=== PATIENT | male | born 1980 | race Caucasian/White ===

== ENCOUNTER 2017-06-01 15:26 | Observation (INO) | payer OTHER ==
[~2017-06-01] VITALS: Ht 182.9 cm; Wt 127.0 kg
--- NOTE | 2017-06-01 15:52 | EKG ---
[address] [address] Test Date: 2017-06-01 Test Time: 15:46:32 Pat Name: RICO LOUIE Department: Room: Gender: M [employer] Carpenter: : 1980 Requested By: MADHURI ALFARO Order Number: [id number] Reading MD: Measurements Intervals Hinkle Rate: 108 P: 20 NE: 136 QRS: 15 QRSD: 90 T: 5 QT: 334 QTc: 451 Interpretive Statements SINUS TACHYCARDIA QRS(T) CONTOUR ABNORMALITY CANNOT RULE OUT ANTEROSEPTAL MYOCARDIAL DAMAGE RI6.01 Unconfirmed report No previous ECG available for comparison
--- NOTE | 2017-06-01 16:08 | PHYS DOC ---
General Chief Complaint: CHEST PAIN Stated Complaint: HEART FELT FUNNY/FELT LIKE HE MIGHT PASS OUT Time Seen by MD: 15:54 Source: patient Exam Limitations: no limitations Problems: History of Present Illness Initial Comments Patient is a 37-year-old male who comes to the ED complaining of palpitations, dyspnea, and high blood pressure. Patient states that he hasn't followed up with any doctors for many years and he has no hypertension diagnosis but he has checked his blood pressure occasionally at the drugstore and has run high. He describes readings with systolic pressures in the 170s to 180s never with any symptoms, he also states that he's been under a great deal of stress recently as he feared he was going to lose his job. He says a week or so ago he had an episode of chest tightness and palpitations but that resolved spontaneously without intervention. This morning while driving to work at approximately 7:00 AM he had a recurrence much more severe of the palpitations and feeling as if he can feel his pulse in his upper extremities face and head. He complains of chest pain described as tightness with dyspnea and headache. Headache is described as pounding feeling his pulse in his head and facial warmth. He denies nausea vomiting vision changes or focal neurologic deficit. Symptoms described as severe, no fever chills or cough. No exacerbating or relieving factors noted other than he feels stress at work has affected him negatively contributing to these symptoms. He is not a smoker he denies family history of coronary artery disease. No pre- arrival treatment. Tachypneic/tachycardic/diaphoretic with facial flushing on arrival. ED vitals: 97.8, 108, 24, 192/121, 98% room air Timing/Duration: constant (since approximately 6 AM) Severity: severe Modifying Factors: improves with other Associated Symptoms: headaches, malaise, shortness of breath (with chest tightness) Allergies: Coded Allergies: No Known Drug Allergies (Unverified , 06/01/17) Past Medical History Medical History: no pertinent history Surgical History: no surgical history Social History Smoker: non-smoker Alcohol: occasionally ("a beer with the guys after work occasionally") Drugs: none Review of Systems Constitutional: denies chills, denies diaphoresis, denies fever, malaise EENTM: denies eye pain, denies blurred vision, denies ear pain, denies nose pain, denies throat pain Respiratory: denies cough, shortness of breath, denies wheezing Cardiovascular: see HPI, palpitations Gastrointestinal: denies abdominal pain, denies diarrhea, denies nausea, denies vomiting Genitourinary: denies dysuria, denies frequency, denies hematuria Musculoskeletal: see HPI, denies back pain, denies joint swelling, denies neck pain (I) Psychiatric/Neurological: headache, denies numbness, denies paresthesia, denies weakness Hematologic/Lymphatic: denies blood clots, denies easy bleeding, denies easy bruising Physical Exam General Appearance: mild distress, obese Eyes: bilateral eye normal inspection, bilateral eye PERRL, bilateral eye EOMI Ear, Nose, Throat: hearing grossly normal, normal ENT inspection (face is flushed), normal pharynx Neck: non-tender, supple Respiratory: chest non-tender, normal breath sounds, no respiratory distress Cardiovascular: normal peripheral pulses, regular rate, rhythm, no edema Gastrointestinal: non tender, soft Back: no CVA tenderness, no vertebral tenderness Extremities: non-tender, normal inspection, no pedal edema, no calf tenderness Neurologic/Psychiatric: sausage stringer II-XII nml as tested, no motor/sensory deficits, alert, oriented x 3, other (anxious on arrival) Skin: warm/dry Orders, Labs, Meds EKG: Sinus tachycardia 108 bpm, anterolateral, for changes without STEMI criteria. Interpreted by me PATIENT: RICO LOUIE ACCOUNT: [id number] : 1980 LOCATION: ER AGE: 37 SEX: M EXAM STATUS: REG ER ORD. PHYSICIAN: MADHURI ALFARO DO REASON: cp PROCEDURE: PORTABLE CHEST 1V Chest radiograph 06/01/2017 at 1609 hours Indication: Heart palpitations, near syncope Comparison: None available Technique: Single portable frontal view of the chest is provided. Findings: Cardiomediastinal silhouette is within normal limits. No pleural effusions, pulmonary vascular congestion or pneumothorax. The lungs are clear. Osseous structures are normal. Impression: No acute cardiopulmonary process. DICTATED AND SIGNED BY: CLARISA PEREA MD DATE: 06/01/17 0690 CC: PCP,LUTHER; MADHURI ALFARO DO ~ 1707: Patient rechecked, good response to Lopressor blood pressure now 150/100 and his chest tightness, upper extremity head and facial discomfort have mostly improved with correction of his blood pressure. Heart rate now running in the 80s. Labs unremarkable. Cardiac enzymes and d-dimer within normal limits. 175: Patient rechecked once again, he still complains of anterior chest tightness discomfort now only 2/10, he is still anxious but his mood has calmed greatly from arrival. He is extremely concerned that his symptoms are stemming from a cardiac cause and anxiety may be playing a role. I did discuss the patient with Dr. Coulter, he is agreeable to accept the patient for observation admission to continue to monitor blood pressure and to follow serial cardiac enzymes with echocardiogram and cardiology consultation tomorrow. Departure Time of Disposition: 17:55 Disposition: ADMITTED INPATIENT Diagnosis: chest pain, hypertensive urgency Condition: STABLE Additional Instructions: Observation telemetry admission Dr. Coulter is accepting. MADHURI ALFARO DO Jun 01, 2017 16:08
[2017-06-01 16:31] LABS: BASO # 0.1 x10^3/uL (0.0-0.2); BASO % 1 % (0-3); EOS # 0.1 x10^3/uL (0.0-0.7); EOS % 1 % (0-3); HEMATOCRIT 48.7 % (39.0-53.0); HEMOGLOBIN 16.4 g/dL (13.0-17.5); LYMPH # 2.7 x10^3/uL (1.0-4.8); LYMPH % 23 % (24-48); MEAN CORPUSCULAR HEMOGLOBIN 30 pg (25-35); MEAN CORPUSCULAR HGB CONC 34 g/dL (31-37); MEAN CORPUSCULAR VOLUME 88 fL (79-100); MONO # 0.7 x10^3/uL (0.0-1.1); MONO % 6 % (0-9); NEUT # 8.4 x10^3uL (1.8-7.7); NEUT % 71 % (31-73); PLATELET COUNT 278 x10^3/uL (140-400); RED BLOOD COUNT 5.54 x10^6/uL (4.30-5.70); WHITE BLOOD COUNT 11.9 x10^3/uL (4.0-11.0)
[2017-06-01 16:42] LABS: ALBUMIN 4.2 g/dL (3.4-5.0); CALCIUM 9.1 mg/dL (8.5-10.1); CREATININE 0.9 mg/dL (0.7-1.3); POTASSIUM 3.6 mmol/L (3.5-5.1); TOTAL BILIRUBIN 0.5 mg/dL (0.2-1.0); TOTAL PROTEIN 8.3 g/dL (6.4-8.2)
[2017-06-01] MEDS ORDERED: ASPIRIN 81 MG TAB.CHEW PO ONE (16:45)
[2017-06-01] MEDS ORDERED: METOPROLOL TARTRATE 5 MG/5 ML VIAL. IV ONE (16:45)
[2017-06-01] MEDS ORDERED: MORPHINE SULFATE 4 MG/ML DISP.SYRIN. IV/SQ PRN (16:45)
[2017-06-01] MEDS ORDERED: NITROGLYCERIN SUBLINGUAL 0.4 MG BOTTLE OF 25. SL PRN ×2 (16:45→18:00)
[2017-06-01] MEDS ORDERED: KETOROLAC 30 MG/ML VIAL. ONE (16:47)
--- NOTE | 2017-06-01 16:50 | RAD ---
Chest radiograph 06/01/2017 at 1609 hours Indication: Heart palpitations, near syncope Comparison: None available Technique: Single portable frontal view of the chest is provided. Findings: Cardiomediastinal silhouette is within normal limits. No pleural effusions, pulmonary vascular congestion or pneumothorax. The lungs are clear. Osseous structures are normal. Impression: No acute cardiopulmonary process.
[2017-06-01] MEDS ORDERED: KETOROLAC 30 MG/ML VIAL. IV ONE (17:20)
[2017-06-01] MEDS ORDERED: ACETAMINOPHEN 325 MG TABLET PO PRN (18:00)
[2017-06-01] MEDS ORDERED: ONDANSETRON PF 4 MG/2 ML VIAL. IV PRN (18:00)
[2017-06-01 19:21] VITALS: BP 169/104
[2017-06-01 19:22] VITALS: BP 169/104
[2017-06-01] MEDS ORDERED: TEMAZEPAM 15 MG CAPSULE PO PRN (21:15)
[2017-06-01] MEDS ORDERED: amLODIPine BESYLATE 10 MG TABLET PO ONE (21:15)
[2017-06-01 21:40] VITALS: BP 157/100
[2017-06-01 23:00] VITALS: BP 134/87
[2017-06-02 06:00] VITALS: BP 148/78
[2017-06-02 06:42] LABS: BASO % 1 % (0-3); EOS # 0.1 x10^3/uL (0.0-0.7); EOS % 2 % (0-3); HEMATOCRIT 44.5 % (39.0-53.0); HEMOGLOBIN 15.1 g/dL (13.0-17.5); LYMPH # 2.2 x10^3/uL (1.0-4.8); LYMPH % 25 % (24-48); MEAN CORPUSCULAR HEMOGLOBIN 30 pg (25-35); MEAN CORPUSCULAR HGB CONC 34 g/dL (31-37); MEAN CORPUSCULAR VOLUME 88 fL (79-100); MONO # 0.6 x10^3/uL (0.0-1.1); MONO % 7 % (0-9); NEUT # 5.8 x10^3uL (1.8-7.7); NEUT % 66 % (31-73); PLATELET COUNT 231 x10^3/uL (140-400); RED BLOOD COUNT 5.08 x10^6/uL (4.30-5.70); RED CELL DISTRIBUTION WIDTH 12.7 % (11.5-14.5); WHITE BLOOD COUNT 8.8 x10^3/uL (4.0-11.0)
[2017-06-02 06:50] LABS: CALCIUM 8.7 mg/dL (8.5-10.1); CREATININE 0.8 mg/dL (0.7-1.3); GFR 108.8; POTASSIUM 3.9 mmol/L (3.5-5.1)
[2017-06-02 10:12] VITALS: BP 156/108
[2017-06-02] MEDS ORDERED: amLODIPine BESYLATE 10 MG TABLET PO SCH (10:30)
[2017-06-02 14:28] VITALS: BP 161/105
[2017-06-02] MEDS ORDERED: AMLO10TA2 PO (14:38)
--- NOTE | 2017-06-02 20:15 | SSS ---
ADMIT DATE: 06/02/2017 HISTORY OF PRESENT ILLNESS: The patient doing is a 37-year-old male patient who came to the Emergency Room complaining of palpitations, dyspnea, noted his blood pressure to be high and the patient stated he has not followed up with any doctor for many years and has had no hypertension diagnosis, but checked his blood pressure occasionally in drug stores and found it high, usually systolic pressure up to 170-180, never with any symptoms. He also has been under a great deal of stress recently and he fears he is going to lose his job. About a week ago, he developed an episode of chest tightness and palpitations that has resolved spontaneously without intervention; however, yesterday morning when he was driving to work at approximately 7:00 a.m., he has had recurrence, much more severe palpitation and a feeling as if she cannot feel his pulse in his upper extremity, face and head. The patient has no known medical problem before and has never had any surgical procedure, and is currently on no medication. The patient was admitted to rule out myocardial infarction and to consult the dry wall applicator. PAST MEDICAL HISTORY: Unremarkable except for the fact that he checked his blood pressure and found it to be high multiple times. PAST SURGICAL HISTORY: Unremarkable. SOCIAL HISTORY: He is , works as a welder/installer, does not smoke or drink alcohol. FAMILY HISTORY: He has 1 sister, older and is healthy. Mother is alive and is known to have hypertension. Father is healthy. REVIEW OF SYSTEMS: As per history of present illness. ALLERGIES: No known drug allergies. MEDICATIONS: The patient is not on any medication. PHYSICAL EXAMINATION: GENERAL: On examining him, he looked well and was clearly in no apparent respiratory distress. There was no pallor, jaundice, cyanosis, lymphadenopathy, or thyromegaly. No jugular venous distention. No limb edema. VITAL SIGNS: His heart rate was 108, blood pressure was 156/100, temperature was 97.8, respiratory rate 24 and oxygen saturation was 98% on room air. HEENT: Showed normocephalic, atraumatic. NECK: Supple. HEART: Showed normal first and second heart sounds with no gallop, rub or murmur. CHEST: Clear to auscultation. No crepitation or rhonchi. ABDOMEN: Distended, soft, nontender. No guarding or rigidity. No organomegaly. Hernial orifices intact. Bowel sounds normal. NEUROLOGIC: He was awake, alert, responding appropriately. Cranial nerves intact. EXTREMITIES: She moves extremities without difficulty, ambulates without assistance or assistive devices. LABORATORY DATA: The patient was admitted and has had 3 sets of cardiac enzymes, all of them showed troponin to be less than 0.10 and 0.017. His fasting lipid profile showed that his serum triglycerides were 135, cholesterol was 140, LDL was 82, VLDL was 27 and HDL was 31 and the ratio was 4. His white cell count was 8800, hemoglobin 15, hematocrit 44, MCV 88 and platelet count 231,00. His serum sodium 142, potassium 3.9, chloride 106, bicarbonate 32, anion gap of 4, BUN 10, creatinine 0.8, estimated GFR was 109 mL per minute, his glucose 113, calcium was 8.7. D-dimer was 0.35 mg/dL. His chest x-ray showed that the cardiomediastinal silhouette is within normal limits. No pleural effusion, pulmonary vascular congestion, pneumothorax. The lungs are clear. Osseous structures were normal. His EKG showed that he was in sinus tachycardia, but no evidence of any ST segment elevation or depression. ASSESSMENT AND PLAN: Basically, the plan is to discharge the patient home on amlodipine 10 mg once a day and we will arrange for him to be seen by the dry wall applicator as an outpatient. FINAL DISCHARGE DIAGNOSES: Chest pain, atypical, no evidence myocardial infarction, hypertension, morbid obesity. KATIE OSULLIVAN MD DR: GILBERTO/lida JOB#: [id number] / [id number]
--- NOTE | 2017-06-03 00:01 | ACF ---
Admission Criteria Forms CARDIOLOGY [facility] Clinical Indications for Admission to Inpatient Care ( [place]/check or initial the applicable condition/criteria) Hospital admission is needed for appropriate care of the patient because of ANY ONE of the following: [ ] I. Hemodynamic instability as indicated by ALL of the following (1)(2)(3) (4)(5)(6)(7)(8)(9)(10) [ ]a) Vital sign abnormality not readily corrected by appropriate treatment with 12-24 hours for ANY ONE: [ ]i) Hypotension that persists despite appropriate treatment (eg, volume repletion) [ ]ii) Tachycardiathat persists despite appropriate tx ( e.g., analgesia, fluids, sedation as indicated [ ]iii) Orthostatic vital sign changes that persists despite appropriate treatment (eg, volume repletion) [ ]b) Vital sign abnormailty that is severe indicated by ANY ONE of the following: [ ]i) Inadequate perfusion indicated by ANY ONE of the following: [ ] 1) Lactic acidosis (> 2 mmol/L) [ ] 2) New abnormal capillary refill (> 3 seconds) [ ] 3) Reduced urine output [ ] 4) New altered mental status [ ] 5) Myocardial Ischemia [ ] 6) Other metabolic acidosis (arterial pH <7.35 ) not otherwise explained. [ ]ii) Mean arterial pressure[A] less than 60 mm Hg [ ]iii) Mean arterial pressure[A] less than 70 mm Hg after 30 minutes of appropriate treatment (eg, fluid resuscitation) [ ]iv) Sustained heart rate greater than 120 beats per minute in adult or child 6 years or older[B] [ ]v) IV inotropic or vasopressor medication required to maintain adequate blood pressure or perfusion [ ] II. Severe heart failure as indicated by ANY ONE of the following(17)(18) [ ]a) Respiratory distress [ ]b) Hypotension [ ]c) Debilitating anasarca refractory to therapy (eg, tissue breakdown with infection)[C](19) [ ]d) Cardiac arrhythmias of immediate concern [ ]e) Myocardial ischemia [ ] III. Cardiac arrhythmias or findings of immediate concern indicated by ANY ONE of the following (21)(22): [ ] a) Heart rhythms that are inherently dangerous or unstable indicated by ANY ONE of the following (23)(24)(25): [ ] i) Resuscitated ventricular fibrillation or cardiac arrest [ ] ii) Ventricular escape rhythm [ ] iii) Sustained ventricular tachycardia (30 seconds or more of ventricular rhythm at greater than 100 beats per minute) [ ] iv) Nonsustained ventricular tachycardia and ANY ONE of the following: [ ] 1) Suspected cardiac ischemia as cause or consequence of ventricular tachycardia [ ] 2) Acute myocarditis [ ] b) Unstable cardiac conduction defects indicated by ANY ONE of the following(25)(26)(27) [ ] i) Type II second-degree atrioventricular block [ ]ii) Third-degree atrioventricular block [ ]iii) New-onset left bundle branch block with suspected myocardial ischemia [ ]c) Any heart rhythm and ANY ONE of the following (23)(24)(28)(29) (30) [ ] i) Continuous long-term ECG monitoring needed (e.g., initiation of drug requiring monitoring for more than 24 hours) [ ] ii) Patient has automatic implanted cardioverter defibrillator that is repeatedly firing, malfunctioning, or in need of immediate adjustment of settings beyond the scope of ambulatory or observation care [ ]d) Heart rhythms of concern due to ANY ONE of the following: [ ] i) Hypotension [ ] ii) Respiratory distress [ ] iii) Association with other significant symptoms (e.g., bradycardia with syncope or ongoing dizziness, supraventricular tachycardia with chest pain (28)(29)(31) [ ] IV. Monitoring for cardiac contusion beyond the scope of observation care needed [A](32)(33)(34) [ ] V. Surgical or device complication (e.g., valve replacement complication , ICD disfunction or pacemaker dysfunction) (49)(50)(51)(52)(53)(54) [ ] . Inpatient palliative care needed. [F](51)(52) Also use Inpatient Palliative Care Criteria [ ] VII. Nonbacterial thrombotic (marantic) endocarditis(43)(44)(55)(56)(57) [X] VIII. Cardiology condition, symptom, or finding for which emergency and observation care has failed or are not considered appropriate. [ ] IX. Acute valvular disease requiring inpatient as indicated by ANY ONE of the following (40)(41) [ ]a) Acute valvular regurgitation (42) [ ]b) Noninfectious valvulitis (43)(44) [ ]c) Obstructive valve thrombosis (45)(46) [ ]d) Paravalvular leak(47)(48) [ ]e) Other significant valvular disorder remaining after emergency or observation level of care (as appropriate) [ ]X. Pericardial disease requiring inpatient treatment as indicated by ANY ONE of the following (35)(36)(37)(38) [ ]a) Suspected tamponade [ ]b) Hemopericardium [ ]c) Other significant pericardial disorder remaining after emergency or observation level of care (as appropriate)(39) [ ] XI. Cardiac ischemia beyond scope of emergency and observation care. [ ] XII. Cyanotic heart disease requiring inpatient care as indicated by 1 or more of the following(58)(59)(60): [ ]a) Acute onset of hypoxemia [ ]b) Exacerbation [X] XIII. Hypertension requiring inpatient treatment as indicated by ANYONE of the following(11)(12)(13)(14): [X]a) Severe hypertension (SBP greater than 180 mm Hg or DBP greater than 110 mm Hg, or greater than the 95th percentile for age, gender, and height in pediatric patients) that cannot be controlled (eg, to SBP less than 160 mm Hg and DBP less than 100 mm Hg) by emergency department or observation care treatment(15) [ ]b) Acute end organ damage secondary to hypertension (SBP greater than 140 mm Hg or DBP greater than 90 mm Hg) as indicated by ANYONE of the following: [ ] i) Hypertensive encephalopathy (eg, Altered mental status)(16) [ ] ii) Cerebral infarction [ ] iii) Intracranial hemorrhage [ ] iv) Myocardial ischemia or infarction [ ] v) Heart failure (eg, pulmonary edema) [ ] vi) Aortic dissection [ ] vii) Increased creatinine (new) with reduction of more than 50% in estimated glomerular filtration rate from baseline [ ] viii) Papilledema [ ] ix) Retinal hemorrhage [ ] x) Microangiopathic hemolytic anemia [ ] xi) Seizure [ ] xii) Other significant finding secondary to hypertension [ ] XIV. Complications of transplanted heart indicated by ANY ONE of the following(61): [ ]a) Acute graft rejection requiring inpatient management (eg, intravenous imunosuppression)(62)(63) [ ]b) Acute graft heart failure indicated by ANY ONE of the following(64): [ ] i) Hemodynamic instability [ ] ii) Cardiac arrhythmias of immediate concern [ ] iii) Pulmonary edema that is very severe (eg, mechanical ventilation needed, imminent or likely, need for 100% oxygen to keep oxygen saturation above 90%) [ ] iv) Pulmonary edema that is persistent as indicated by ALL of the following: [ ] 1) New need for oxygen therapy to keep oxygen saturation above 90 % (or increased FiO2 need from baseline) [ ] 2) Has not improved sufficiently with emergency department or observation care IV diuretics or other heart failure treatments[E]. [ ] iv) Altered mental status that is severe or persistent [ ] iv) Increased creatinine (new on laboratory test) with reduction of more than 50% in estimated glomerular filtration rate from baseline [ ] iv) Progressively (ongoing) rising creatinine (known from past laboratory test) with reduction of more than 25% in estimated glomerular filtration rate from baseline [ ] iv) Acute renal failure [ ] iv) Acute peripheral ischemia (eg, examination shows pulseless, cool, mottled, or cyanotic extremity) [ ] iv) Pulmonary artery catheter monitoring needed [ ] iv) Other sign or symptom of heart failure requiring inpatient treatment (ie, too severe or not responsive to outpatient and observation care treatment) [ ]c) Infection requiring inpatient management (eg, Hemodynamic instability, need for intravenous antimicrobial treatment)(66)(67)(68)(69)(70) [ ]d) Cardiac allograft vasculopathy requiring inpatient management (eg evidence of cardiacischemia)(71) [ ]e) Other complication of transplanted heart (eg, stroke, severe pulmonary hypertension, severe valvular dysfunction) requiring inpatient management(72) The original [facility] content created by [employer] has been revised. The portions of the content which have been revised are identified through the use of italic text, and [facility] has neither reviewed nor approved the modified material. All other unmodified content is copyright [facility]. Please see references footnoted in the original [facility] edition 2014 Admission Criteria Met?: Yes GARY ALEXANDER Jun 03, 2017 00:01
== END 2017-06-02 15:30 | disposition home or self-care (01) ==
LOC: ER 15:26 → 1 SOUTH 18:21
PROVIDERS: ADMIT Internal Medicine; ATTEND Internal Medicine
DX: R07.89 Other chest pain (principal); I10 Essential (primary) hypertension; E66.01 Morbid (severe) obesity due to excess calories; Z82.49 Family history of ischemic heart disease and other diseases of the circulatory system
CPT/HCPCS: 36415; 71010; 80048; 80053; 80061; 82550; 83690; 83880; 84484; 85025; 85379; 93005; 96374; 99285; G0378; J3490; G0379